=== PATIENT | male | born 1975 | race Caucasian/White ===

== ENCOUNTER 2021-03-23 11:54 | Emergency (ER) | payer BC ==
--- NOTE | 2021-03-23 11:57 | EDM.PDOC ---
ED HPI GENERAL MEDICAL PROBLEM - General Stated Complaint: PAIN W/BREATHING SOB Time Seen by Provider: 03/23/21 11:55 Source of Information: Reports: Patient History Limitations: Reports: No Limitations - History of Present Illness INITIAL COMMENTS - FREE TEXT/NARRATIVE: HISTORY AND PHYSICAL: History of present illness: The patient is a 45-year-old male who presents to the emergency room with complaints of left upper lateral side pain that started last night. Patient describes the pain as sore last night but has increased pain this morning. He states it hurts when he takes a deep breath where he is breathing cool air. He states that movement also increases the pain. He has been using heat to help the pain. 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 He denies any chronic cough or cold. He denies any kind of vomiting or stress. He has not had any heavy lifting. The patient states a hot shower felt good this morning and it also feels good when he extends his left arm over his head. He denies any shortness of breath. The patient has never had anything like this previously. Patient denies any fever, chills, headache, change in vision, syncope or near syncope. Denies any back pain. Denies any abdominal pain, nausea, vomiting, diarrhea, constipation or dysuria. Has not noted any blood in urine or stool. Patient has been eating and drinking appropriately. Review of systems: As per history of present illness and below otherwise all systems reviewed and negative. Past medical history: As per history of present illness and as reviewed below otherwise noncontributory. Surgical history: As per history of present illness and as reviewed below otherwise noncontributory. Social history: See social history for further information Family history: As per history of present illness and as reviewed below otherwise noncontributory. Physical exam: General: Well developed and well nourished. Alert and orientated x 3. Nontoxic in appearance and in no acute distress. Vital signs are stable and have been reviewed by me. Nursing notes were reviewed. HEENT: Atraumatic, normocephalic, pupils equal and reactive bilaterally, negative for conjunctival pallor or scleral icterus, mucous membranes moist, TMs normal bilaterally, throat clear, neck supple, nontender, trachea midline. No drooling or trismus noted. No meningeal signs. No hot potato voice noted. Lungs: Lower lung brown with rhonchi. All other lung brown clear to auscultation. Chest nontender. Normal work of breathing, no accessory muscles used. The patient is nontender to palpation of less chest wall. Heart: S1S2, regular rate and rhythm without overt murmur, gallops, or rubs. No JVD. No peripheral edema Abdomen: Soft, nondistended, nontender. Normoactive bowel sounds. Negative for masses or costovertebral tenderness. Skin: Intact, warm, dry. No lesions or rashes noted. Hematologic: No petechiae or purpra. Mucosa appropriate color and normal nail bed color and refill. Extremities: Atraumatic, moves all extremities per self without difficulty or deficits, negative for cords or calf pain. Neurovascular unremarkable. Neuro: Awake, alert, oriented. Cranial nerves II through XII unremarkable. Cerebellum unremarkable. Motor and sensory unremarkable throughout. Exam nonfocal. Psychiatric: Mood and affect are appropriate. Normal thought process. Answering questions appropriately. Notes: *This patient was seen and evaluated during the 2019 SARS-CoV-2 novel coronavirus pandemic period. Community viral transmission is ongoing at time of this encounter and the emergency department is operating under pandemic response procedures. As stated above the patient is a 45-year-old male who presents to the emergency room with complaints of left lateral chest wall pain that started yesterday. The pain started out as a dull ache and has progressed to a sharp pain. The pain is worse with deep inspiration or breathing cool air. Some movement also increases pain. Heat and a hot shower decrease the pain. Putting the left arm over the head also decrease the pain. The patient is denying any shortness of breath and his respiratory rate shows no work of breathing. His SPO2 is 95% on room air. The patient denies any injury, trauma, heavy lifting, cough, or vomiting. He was nontender on the left chest wall upon exam. He did have some rhonchi in the left posterior lower lobe. I will obtain an x-ray and blood work. I will treat the patient's pain with Toradol IV. The patient is agreeable with this plan. Post Toradol administration the patient states that his pain is much better. He has a small amount of pain on the end of inspiration. The CBC shows a mildly elevated white blood cell count of 12.18. The CMP is normal. CXR impression:Probable atelectasis or scarring at the left lung base. Otherwise no acute process. I have talked with the patient and as his pain is much better after Toradol and his chest x-ray is normal, the patient is agreeable to discharge and follow-up with his primary care provider. I instructed patient that if he had a cardiac signs such as chest pain with pain rating to his chin or his arm or becomes diaphoretic please return to the emergency department as these are different signs that he is experiencing now and could be cardiac in nature. The patient verbalizes understanding. I have talked with the patient about today's findings, in addition to providing specific details for plan of care. Reassessment at the time of disposition demonstrates that the patient is in no acute distress. The patient is stable for discharge, counseling was provided and we discussed in great detail signs and symptoms that would prompt them to return to the Emergency Department. Medication, follow up and supportive care measures were reviewed and discussed. Voices understanding and is agreeable to plan of care. Denies any further questions or concerns at this time. Diagnostics: CXR 2 view, CBC, CMP Therapeutics: Toradol Impression: Chest wall pain Plan: 1. You were evaluated today on an emergent basis. Your complaints of left lateral chest wall pain evaluated with blood work which was essentially normal and a chest x-ray which showed atelectasis or scarring at the left lung base. You were treated with Toradol which helped your pain. You can take NSAIDs such as Advil 600 mg every 8 hours for pain. I am prescribing you incentive spirometer to use every 2-4 hours for the next week to help exercise your lungs. You need to follow-up with your primary care by the end of next week or the beginning of the week after. If you become short of breath increased pain or just generally start to feel worse please return to the emergency room immediately. As we discussed you are low risk for a pulmonary embolism but if your symptoms change you would need to have a CT. 2. You can alternate Tylenol and ibuprofen as needed for pain and fever management. 3. We encourage you to follow up with your primary care provider and/or recommended specialist in the next few days for re-evaluation and further care/management. 4. If your symptoms should worsen, new symptoms develop or any of the signs and symptoms we discussed should arise please return to the emergency room or call 911 (if needed). Definitive disposition and diagnosis as appropriate pending reevaluation and review of above. left rib pain Pain Score (Numeric/FACES): 7 - Related Data Allergies Allergy/AdvReac Type Severity Reaction Status Date / Time No Known Allergies Allergy Verified 03/23/21 12:06 Home Meds: Home Meds . [No Known Home Meds] 03/23/21 [History] ED ROS GENERAL - Review of Systems Review Of Systems: Comprehensive ROS is negative, except as noted in HPI. ED EXAM, GENERAL - Physical Exam Exam: See Below (See dictation) Course - Vital Signs Last Recorded V/S: Last Vital Signs Temp 97.1 F 03/23/21 12:06 Pulse 69 03/23/21 13:59 Resp 17 03/23/21 13:59 BP 109/57 L 03/23/21 13:59 Pulse Ox 98 03/23/21 13:59 - Orders/Labs/Meds Labs: Laboratory Tests 03/23/21 03/23/21 Range/Units 12:25 12:25 WBC 12.18 H (4.0-11.0) K/uL RBC 4.65 (4.50-5.90) M/uL Hgb 14.8 (13.0-17.0) g/dL Hct 43.4 (38.0-50.0) % MCV 93.3 (80.0-98.0) fL MCH 31.8 (27.0-32.0) pg MCHC 34.1 (31.0-37.0) g/dL RDW Std Deviation 44.7 (28.0-62.0) fl RDW Coeff of Champ 13 (11.0-15.0) % Plt Count 229 (150-400) K/uL MPV 9.10 (7.40-12.00) fL Neut % (Auto) 69.4 (48.0-80.0) % Lymph % (Auto) 18.9 (16.0-40.0) % [place] % (Auto) 9.4 (0.0-15.0) % Eos % (Auto) 2.1 (0.0-7.0) % Baso % (Auto) 0.2 (0.0-1.5) % Neut # (Auto) 8.5 H (1.4-5.7) K/uL Lymph # (Auto) 2.3 (0.6-2.4) K/uL [place] # (Auto) 1.1 H (0.0-0.8) K/uL Eos # (Auto) 0.3 (0.0-0.7) K/uL Baso # (Auto) 0.0 (0.0-0.1) K/uL Nucleated RBC % 0.0 /100WBC Nucleated RBCs # 0 K/uL Sodium 140 (136-148) mmol/L Potassium 3.8 (3.5-5.1) mmol/L Chloride 103 (98-107) mmol/L Carbon Dioxide 21.8 (21.0-32.0) mmol/L BUN 16 (7.0-18.0) mg/dL Creatinine 1.1 (0.8-1.3) mg/dL Est Cr Clr Drug Dosing 93.82 mL/min Estimated GFR (MDRD) > 60.0 ml/min Glucose 102 (74-106) mg/dL Calcium 9.1 (8.5-10.1) mg/dL Total Bilirubin 0.8 (0.2-1.0) mg/dL AST 16 (15-37) IU/L ALT 29 (14-63) IU/L Alkaline Phosphatase 79 (46-116) U/L Total Protein 7.7 (6.4-8.2) g/dL Albumin 3.9 (3.4-5.0) g/dL Globulin 3.8 (2.6-4.0) g/dL Albumin/Globulin Ratio 1.0 (0.9-1.6) Meds: Medications Discontinued Medications Generic Name Dose Route Start Last Admin Trade Name Freq PRN Reason Stop Dose Admin Ketorolac Tromethamine 30 mg 03/23/21 12:14 03/23/21 12:25 Ketorolac 30 Mg/Ml Sdv IVPUSH 03/23/21 12:15 30 mg ONETIME ONE Administration Sodium Chloride 10 ml 03/23/21 12:13 03/23/21 12:26 Sodium Chloride 0.9% 10 Ml Syringe FLUSH 10 ml ASDIRECTED PRN Administration Keep Vein Open Sodium Chloride 2.5 ml 03/23/21 12:13 03/23/21 12:26 Sodium Chloride 0.9% 2.5 Ml Syringe FLUSH 2.5 ml ASDIRECTED PRN Administration Keep Vein Open Departure - Departure Time of Disposition: 13:34 Disposition: Home, Self-Care 01 Condition: Good Clinical Impression: Atelectasis of left lung - Discharge Information *PRESCRIPTION DRUG MONITORING PROGRAM REVIEWED*: Not Applicable *COPY OF PRESCRIPTION DRUG MONITORING REPORT IN PATIENT ANASTASIA: Not Applicable Instructions: Atelectasis, Adult Referrals: PCP,None [Primary Care Provider] - Forms: ED Department Discharge Additional Instructions: The following information is given to patients seen in the emergency department who are being discharged to home. This information is to outline your options for follow-up care. We provide all patients seen in our emergency department with a follow-up referral. The need for follow-up, as well as the timing and circumstances, are variable depending upon the specifics of your emergency department visit. If you don't have a primary care physician on staff, we will provide you with a referral. We always advise you to contact your personal physician following an emergency department visit to inform them of the circumstance of the visit and for follow-up with them and/or the need for any referrals to a consulting specialist. The emergency department will also refer you to a specialist when appropriate. This referral assures that you have the opportunity for follow-up care with a specialist. All of these measure are taken in an effort to provide you with optimal care, which includes your follow-up. Under all circumstances we always encourage you to contact your private physician who remains a resource for coordinating your care. When calling for follow-up care, please make the office aware that this follow-up is from your recent emergency room visit. If for any reason you are refused follow-up, please contact the [facility] Emergency Department at and asked to speak to the emergency department charge nurse. [facility] [address] [place] [id number] [facility] [address] [place] [id number] Plan: 1. You were evaluated today on an emergent basis. Your complaints of left lateral chest wall pain evaluated with blood work which was essentially normal and a chest x-ray which showed atelectasis or scarring at the left lung base. You were treated with Toradol which helped your pain. You can take NSAIDs such as Advil 600 mg every 8 hours for pain. I am prescribing you incentive spirometer to use every 2-4 hours for the next week to help exercise your lungs. You need to follow-up with your primary care by the end of next week or the beginning of the week after. If you become short of breath increased pain or just generally start to feel worse please return to the emergency room im mediately. As we discussed you are low risk for a pulmonary embolism but if your symptoms change you would need to have a CT. 2. You can alternate Tylenol and ibuprofen as needed for pain and fever management. 3. We encourage you to follow up with your primary care provider and/or recommended specialist in the next few days for re-evaluation and further care/management. 4. If your symptoms should worsen, new symptoms develop or any of the signs and symptoms we discussed should arise please return to the emergency room or call 911 (if needed).
--- NOTE | 2021-03-23 12:05 | PCM.EKG ---
#1 Interpretation EKG Interpretation Comments: EKG done 03/23/2021 at 12 PM shows a sinus rhythm heart rate [address] interval 164 QT duration 406 and axis of 61 with a normal QRS normal ST and T impression normal EKG
[2021-03-23] MEDS ORDERED: Sodium Chloride 0.9% 2.5 ML Syringe FLUSH PRN (12:13)
[2021-03-23] MEDS ORDERED: Sodium Chloride 0.9% 10 ML Syringe FLUSH PRN (12:13)
[2021-03-23] MEDS ORDERED: Ketorolac 30 MG/ML SDV IVPUSH ONE (12:14)
[2021-03-23 13:09] LABS: BLOOD UREA NITROGEN,BUN 16 mg/dL (7.0-18.0); CARBON DIOXIDE,CO2 21.8 mmol/L (21.0-32.0); CHLORIDE,CL 103 mmol/L (98-107); GLUCOSE RANDOM 102 mg/dL (74-106); POTASSIUM,K 3.8 mmol/L (3.5-5.1); SODIUM,NA 140 mmol/L (136-148)
--- NOTE | 2021-03-23 13:13 | CR ---
INDICATION: Chest pain TECHNIQUE: Chest 2 views. COMPARISON: None FINDINGS: The heart is normal in size. The pulmonary vasculature is within normal limits. Atelectasis or scarring at the left lung base. The lungs are otherwise clear without focal consolidation, pleural effusion or pneumothorax. There are early degenerative changes of the thoracic spine. IMPRESSION: Probable atelectasis or scarring at the left lung base. Otherwise no acute process. Dictated by Ifeoma Mancuso MD @ 03/23/2021 1:11:30 PM (Electronically Signed)
== END 2021-03-23 14:00 | disposition home or self-care (01) ==
LOC: MW.ED 11:54
DX: J98.11 Atelectasis (principal)
CPT/HCPCS: 36415; 71046; 80053; 85025; 93005; 96374; 99284; J1885